=== PATIENT | female | born 1955 | race Caucasian/White ===

== ENCOUNTER 2018-02-21 20:01 | Emergency (ER) | payer OTHER ==
[2018-02-21] MEDS ORDERED: CYCLOBENZAPRINE 10 MG TAB PO ONE (20:10)
[2018-02-21] MEDS ORDERED: KETOROLAC 30 MG/1 ML SDV IM ONE (20:10)
--- NOTE | 2018-02-21 20:10 | EDPHY ---
H & P Time Seen by Provider: 02/21/18 20:02 HPI/ROS: HPI: This is a 62-year-old female who presents Chief Complaint: Accidental fall, right ankle injury Location: Right ankle Quality: Injury Duration: Prior to arrival Signs and Symptoms: No bleeding, + radiation, no numbness, no weakness, no tingling, no incontinence, + decreased range of motion, no swelling, + pain, no fever Timing: Acute Severity: Moderate Context: Patient arrives via EMS with complaints of accidentally falling on the stones by a tree outside of the [place] in [place]. She is unsure of exactly how she fell but she reports "I wibbled wobbled" and then fell to the ground. She reports that she felt right lateral ankle pain and had difficulty ambulating. There was a police [employer] program coordinator nearby that called ambulance for transport. Denies LOC/head injury/neck pain/dizziness/nausea/vomiting/amnesia. She complains of right lower back and right hamstring mild, radiating pain from her right hip down into her posterior right knee. Modifying Factors: None Comment: ROS: A comprehensive 10 system review of systems is otherwise negative aside from elements mentioned in the history of present illness. MEDICAL/SURGICAL/SOCIAL HISTORY: Medical history: Generally healthy. Does not take any regular medications. Surgical history: Denies Social history: Employed. Lives in [place]. CONSTITUTIONAL: Well-appearing elderly white female, texting on her cell phone , awake and alert, no obvious distress HEENT: Atraumatic and normocephalic, PERRL, EOMI. no globe entrapment, no raccoon eyes. no Dong signs.Tympanic membranes clear. No tympanic membrane rupture. Nares patent; no septal hematoma. Oropharynx clear, no exudate and moist pink mucosa. No malocclusion. no dental trauma. Airway patent. No lymphadenopathy. NECK: supple, no midline tenderness, flexion 45 degrees, extension 45 degrees, right and left lateral flexion 45 degrees. No meningismus. Cardiovascular: Normal S1/S2, regular rate, regular rhythm, without murmur rub or gallop. PULMONARY/CHEST: Symmetrical and nontender. no crepitus. Clear to auscultation bilaterally. Good air movement. No accessory muscle usage. ABDOMEN: Soft, nondistended, nontender, no ecchymosis, no rebound, no guarding , no peritoneal signs, no masses or organomegaly. No CVAT. PELVIC: no pain with rocking; bilateral hips flexion 125 degrees, extension 30 degrees, with no pain internal rotation and no pain external rotation. BACK: No midline tenderness, no paraspinous spasm, deep tendon reflexes 2/2, mild pain with straight leg raise EXTREMITIES: 2/2 pulses, bilateral HIP: Flexion to 125, extension to 115, hyper extension to 15, abduction to 45. Mild Pain with internal rotation and external rotation. No tenderness over greater trochanter. Right Ankle: Mild effusion over lateral malleolus. Plantar flexion to 50, dorsiflexion to 20. Foot inversion to 35 degree. No tenderness/swelling Anterior talofibular ligament. No tenderness/swelling Calcaneofibular ligament, no tenderness/ swelling posterior talofibular ligament, no tenderness/swelling posterior inferior tibiofibular ligament. Achilles tendon intact. no deformities, no clubbing, no cyanosis or edema. NEUROLOGICAL: no focal neuro deficits. GCS 15. SKIN: Warm and dry, no erythema. no rash. Good capillary refill. Source: Patient Exam Limitations: No limitations Constitutional: Initial Vital Signs Temperature (C) 36.7 C 02/21/18 20:08 Heart Rate 82 02/21/18 20:08 Respiratory Rate 18 02/21/18 20:08 Blood Pressure 148/81 H 02/21/18 20:08 O2 Sat (%) 97 02/21/18 20:08 O2 Delivery Mode Room Air Allergies/Adverse Reactions: Opioids - Morphine Analogues Allergy (Verified 02/21/18 20:08) sulfacetamide [From Sulfacet-R] Allergy (Verified 02/21/18 20:08) sulfur [From Sulfacet-R] Allergy (Verified 02/21/18 20:08) Home Medications: Medication Instructions Recorded Cyclobenzaprine [Flexeril 10 MG 10 mg PO TID PRN #15 tab 02/21/18 (*)] Medical Decision Making - Diagnostics Imaging Results: Imaging Impressions Ankle X-Ray 02/21/18 20:10 Impression: Lateral ankle sprain. Lumbar Spine X-Ray 02/21/18 20:10 Impression: Multilevel degenerative change, with no acute osseous abnormality. Pelvis X-Ray 02/21/18 20:10 Impression: There is no acute osseous abnormality identified. Procedures: Procedure: Splint placement. A ankle stirrup splint and crutches were applied. After application of the splint I returned and re-examined the patient. The splint was adequately immobilizing the joint and distal to the splint the patient's circulation and sensation was intact. ED Course/Re-evaluation: Pelvis x-ray, lumbar sacral x-ray, ankle x-ray, IM and oral medications ordered Ice pack applied. Given IM Toradol 30 mg and p.o. Flexeril. Fall is mechanical/accidental in nature X-ray my read shows no acute fracture. Road test. Patient unable to bear weight on ankle. Declines Garber boot. Agreeable to ankle stirrup splint and crutches. No signs of neurovascular compromise/tenting of skin/compartment syndrome/ extremities and joints examined above and below area of concern and are neurovascularly intact. This patient was seen under the supervision of my secondary supervising physician. I evaluated care for this patient independently. Discussed this patient with Dr. Castro. Differential Diagnosis: Ankle injury differential diagnosis includes but is not limited to tibia fracture, fibula fracture, metatarsal fracture, LisFranc fracture, achilles tendon rupture, sprain. - Data Points Medications Given: Discontinued Medications Cyclobenzaprine HCl (Flexeril) 10 mg PO EDNOW ONE Stop: 02/21/18 20:11 Last Admin: 02/21/18 20:49 Dose: 10 mg Cyclobenzaprine HCl (Flexeril 10 Mg Prepack#3) 1 btl TAKEHOME EDNOW ONE Stop: 02/21/18 21:46 Last Admin: 02/21/18 21:49 Dose: 1 btl Ketorolac Tromethamine (Toradol) 30 mg IM EDNOW ONE Stop: 02/21/18 20:11 Last Admin: 02/21/18 20:49 Dose: 30 mg Departure - Departure Disposition: Home, Routine, Self-Care Clinical Impression: Strain of right hamstring Accidental fall Qualifiers: Encounter type: initial encounter Qualified Code(s): W19.XXXA - Unspecified fall, initial encounter Lumbar strain Qualifiers: Encounter type: initial encounter Qualified Code(s): S39.012A - Strain of muscle, fascia and tendon of lower back, initial encounter Right ankle sprain Qualifiers: Encounter type: initial encounter Involved ligament of ankle: unspecified ligament Qualified Code(s): S93.401A - Sprain of unspecified ligament of right ankle, initial encounter Condition: Good Instructions: Cyclobenzaprine (By mouth), Ankle Sprain (ED), Hamstring Injury ( ED), Low Back Strain (ED) Additional Instructions: Wear ankle splint until pain free. Use crutches to aid ambulation. Start with toe-touch weight-bearing status and slowly advance as tolerated. Take Tylenol 650 mg every 4 hours and/or Ibuprofen 600 mg every 8 hours with food as needed for pain. Use Flexeril every 8 hours as needed for muscle spasm. Apply ice for 30 minutes at a time; 2-3 times per day for the next 1-2 days. Follow up with Orthopedics in 7-10 days at which time they will evaluate and recommend with you if conservative management versus further imaging is indicated. The x-rays obtained in the emergency department today demonstrate no evidence of an obvious fracture. Sometimes fractures are not obvious on the initial set of x-rays performed in the ED. For this reason, you should have repeat x-rays performed in 7-10 days if you are having any pain exclude the possibility of an occult fracture. Referrals: Chris Yepez MD [Medical Doctor] - As per Instructions Prescriptions: Cyclobenzaprine [Flexeril 10 MG (*)] 10 mg PO TID PRN #15 tab PRN Reason: Spasms
[2018-02-21 20:11] VITALS: BP 148/81
[2018-02-21] MEDS ORDERED: CYCLOBENZAPRINE 10MG PREPACK#3 BTL TAKEHOME ONE (21:45)
== END 2018-02-21 21:59 | disposition home or self-care (01) ==
LOC: EDAGE
DX: S93.401A Sprain of unspecified ligament of right ankle, initial encounter (principal); S39.012A Strain of muscle, fascia and tendon of lower back, initial encounter; W01.198A Fall on same level from slipping, tripping and stumbling with subsequent striking against other object, initial encounter; Y92.828 Other wilderness area as the place of occurrence of the external cause
CPT/HCPCS: J1885; L4350